=== PATIENT | female | born 1995 | race Caucasian/White ===

== ENCOUNTER 2019-08-14 21:37 | Emergency (ER) | payer BC, SELFPAY ==
[2019-08-14 21:44] VITALS: BP 120/81; PULSE 83; RESP 16; TEMP 37.1; O2SAT 97; BMI 27.4
--- NOTE | 2019-08-14 22:29 | ED.GENADULT ---
HPI - General Adult General Chief complaint: Ear Stated complaint: RIGHT EAR PAIN Time Seen by Provider: 08/14/19 22:12 Source: patient Mode of arrival: Ambulatory Limitations: no limitations History of Present Illness HPI narrative: 24-year-old female here for evaluation of right ear pain for the past 3 days. She also describes nasal congestion a sore throat. Has not tried anything for symptoms prior to arrival. Related Data Previous Rx's Medication Instructions Recorded amoxicillin-pot clavulanate 1 tab PO BID 7 Days #14 tab 08/14/19 [Augmentin] Allergies Allergy/AdvReac Type Severity Reaction Status Date / Time No Known Drug Allergies Allergy Verified 08/14/19 22:36 Review of Systems Constitutional Constitutional: Denies fever(s) and Denies headache(s) ENT Ears, Nose, Mouth, and Throat: Denies facial pain, Denies headache(s), Reports nasal congestion, Denies nose pain, Reports sinus pressure, Reports sore throat and Denies throat swelling Comments: Right ear pain, Respiratory Respiratory: Denies cough Integumentary/Breasts Skin/Breast: Denies rash Neurologic Neurologic: Denies headache(s) Hematologic/Lymphatic Hematologic/Lymphatic: Denies easy bleeding and Denies easy bruising Allergic/Immunologic Allergic/Immunologic: Denies throat swelling Patient History Medical History Healthy adult (Acute) Social History Smoking Status: Current every day smoker Smoking Status: Current every day smoker tobacco type: vaping alcohol intake frequency: holidays/special occasions only Substance Use Type: does not use Exam Initial Vital Signs Initial Vital Signs: Vital Signs Temperature 98.7 F 08/14/19 21:44 Pulse Rate 83 08/14/19 21:44 Respiratory Rate 16 08/14/19 21:44 Blood Pressure 120/81 08/14/19 21:44 Pulse Oximetry 97 08/14/19 21:44 Const General: cooperative and comfortable Orientation: alert and awake HENSD Head: normal to inspection and normocephalic Ears: TM normal on the left, EAC's normal and TM abnormal bulging on the right, dull on the right, wth effusion purulent on the right, with fluid behind the TM on the right and with loss of landmarks on the right; not erythematous Skin Lesions: no lesions Rashes: no rashes Neuro General: alert and awake Cognition: normal cognition Speech: speech normal Extrem General: normal to inspection and capillary refill normal Course Orders Ordered: Discontinued Medications Amoxicillin/Clavulanate Potassium (Augmentin 875-125 Mg) 1 tab PO NOW ONE Stop: 08/14/19 22:30 Last Admin: 08/14/19 22:37 Dose: 1 tab Documented by: PACO Vital Signs Vital signs: Vital Signs - 8 hr 08/14/19 21:44 Temperature 98.7 F Pulse Rate 83 Respiratory Rate 16 Blood Pressure 120/81 Pulse Oximetry 97 Medical Decision Making MDM Narrative Medical decision making narrative: Patient with purulence fluid behind the right ear. No signs of a tympanic membrane rupture. Will treat with antibiotics given the physical exam. Patient was given return precautions and follow-up instructions. She expressed understanding and agreement plan. Discharge Plan Departure Patient Disposition: Home Clinical Impression: Otitis media Qualifiers: Otitis media type: suppurative Chronicity: acute Laterality: right Recurrence: not specified as recurrent Spontaneous tympanic membrane rupture: without spontaneous rupture Qualified Code(s): H66.001 - Acute suppurative otitis media without spontaneous rupture of ear drum, right ear Discharge Date/Time: 08/14/19 22:44 Instructions: Middle Ear Infection Activity Restrictions/Additional Instructions: Take the antibiotics as directed. I also recommend you start taking a antihistamine such as Claritin or Ysabel or Zyrtec. You can buy these [id number]. The generic versions are okay to purchase. I also recommend you start on a nasal spray such as Nasonex or Flonase. You can also buy these [id number]. Contact your primary provider for follow-up. Return to the emergency department for any new or worsening symptoms Prescriptions: New amoxicillin-pot clavulanate [Augmentin] 875-125 mg tablet 1 tab PO BID 7 Days Qty: 14 RF: 0
[2019-08-14] MEDS: AMOXICILLIN/CLAV 875/125 MG 1 TAB PO (22:37)
== END 2019-08-14 22:44 | disposition home or self-care (01) ==
PROVIDERS: Emergency Provider Emergency Medicine
DX: H66.001 Acute suppurative otitis media without spontaneous rupture of ear drum, right ear (principal)
CPT/HCPCS: 99281; 99283